=== PATIENT | male | born 1950 | race Caucasian/White ===

== ENCOUNTER 2023-07-25 07:30 | Day surgery (SDC) | payer MEDICARE, SELFPAY ==
[2023-07-25] VITALS (12 sets, daily range): BP systolic 117–147; BP diastolic 80–99; PULSE 67–75; RESP 14–16; TEMP 36.4; O2SAT 92–98; BMI 31.8
[2023-07-25] MEDS: LACTATED RINGERS 1000 ML 1,000 ML 100 ML IV (07:40)
[2023-07-25] MEDS: SODIUM CHLORIDE 0.9 % (FLUSH) 10 ML SYRINGE IVF (08:28)
[2023-07-25] MEDS: CEFAZOLIN 2 GM INJ IVP (09:46)
[2023-07-25] MEDS: BUPIVACAINE 0.25% 30 ML INJECTION (09:51)
--- NOTE | 2023-07-25 10:49 | W.ANESCHARGE ---
Anesthesia Charges Start Date/Time Anesthesia Start Date: 07/25/23 Anesthesia Start Time: 09:19 Stop Date/Time Anesthesia Stop Date: 07/25/23 Anesthesia Stop Time: 11:16 Summary Extremes of Age - Over 70 or under 1: MDA
--- NOTE | 2023-07-25 11:06 | PM.GSPRC ---
Operative Note Date of procedure: 07/25/23 Pre-op diagnosis: Right inguinal hernia Post-op diagnosis: same Type of Procedure: Laparoscopic right inguinal hernia repair with mesh Indications: The patient is a 72-year-old male who previously underwent left inguinal hernia repair laparoscopically in 2019. He developed a right groin bulge approximately 1 year ago. This became increasingly symptomatic for him and he desired repair. Discussed options and agreed to proceed with surgical repair. Procedure Description: After discussing the risks and benefits of the procedure, the patient signed informed consent.? The operative site was marked and the patient was brought to the operating room and placed on the operating table in supine position.? Care was taken to pad the patient's pressure points.?? The patient was then intubated by anesthesia.?? The operative site was then prepped and draped in the usual sterile fashion.? A time-out was then performed. A curvilinear incision was made below the umbilicus. Dissection was carried down to subcutaneous tissue until the anterior rectus fascia was encountered. This was incised off the midline on the right. The rectus muscle fibers were then retracted exposing the posterior fascia. A port with a dissecting balloon was then introduced into the pre-preperitoneal space. This was inflated under direct vision. The balloon was deflated, removed, and a 10 mm working port was placed. The space was insufflated and a 10 mm 30-degree scope was then advanced into the space. There were adhesions toward the midline from the patient's prior laparoscopic repair, however I was able to take these down bluntly in order to place 2 working ports in the midline. I began my dissection laterally as there were more adhesions medially. I was able to identify the epigastric vessels and dissect out laterally, identifying an indirect hernia sac. This hernia sac was reduced along with a large cord lipoma. This was dissected with a combination of blunt dissection and cautery on small blood vessels. I then took my dissection medially. The preperitoneal fat was densely adherent to the abdominal wall here, likely from the patient's prior repair. I was able to, staying close to the abdominal wall dissect medially, encountering the pubic bone. There was no direct hernia defect noted. Once I had created sufficient space for placement of mesh, piece of large Bard 3DMax mesh was obtained and placed into the preperitoneal space. This was positioned with the marker pointed medially. A Tacker was used to attach the mesh medially at Rupesh's ligament and 1 tack laterally with care to avoid the epigastric vessels and stay above the inguinal ligament. Once this was completed the sac was placed on top of the mesh and the preperitoneal space desufflated under direct vision to ensure the mesh laid flat. 10 mL of 0.5% Marcaine were instilled into the preperitoneal space through a port. The ports were removed. The fascia from the infraumbilical port was closed with 0 Vicryl. The skin incisions were closed with absorbable subcuticular suture. Sterile dressings were then applied. The scrotum was examined to ensure that both testicles were down. Instrument sponge and needle counts were correct at the end of the case. The patient tolerated the procedure well. Findings: Indirect inguinal hernia on the right with adhesions in the midline from prior repair. Anesthesia: GETA Surgeon: Ting Mac MD Estimated blood loss (mL): 5 Condition: stable Disposition: PACU
--- NOTE | 2023-07-25 11:21 | W.ANESCHARGE ---
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
[2023-07-25] MEDS: fentaNYL 100 MCG/2 ML inj 50 MCG IVP (11:35)
[2023-07-25] MEDS: HYDROCODONE-ACETAMIN 5-325 MG 1 TAB PO (12:26)
== END 2023-07-25 12:59 | disposition home or self-care (01) ==
PROVIDERS: PCP Physician Assistant Medical; Visit Provider Surgery
PROC: (CPT 49650; principal; 2023-07-25 08:45)
DX: K40.90 Unilateral inguinal hernia, without obstruction or gangrene, not specified as recurrent (principal)
CPT/HCPCS: 49650; 00860; 99100; A9270; C1781; J0665; J0690; J1100; J1170; J1885; J2405; J2704; J3010; J3490; J7120

== ENCOUNTER 2024-07-14 06:25 | Day surgery (SDC) | payer MEDICARE, SELFPAY ==
--- OUTSIDE RECORDS SUMMARY | 2024-07-14 06:27 | XMS_ITS | Clinical Summary ---
Author Organization [employer] [facility] Address [place], [place] [address] Care Team Providers Care Apprentice Plant Attendant Name Role Phone Peggy Najera Primary Care Provider Allergies No known active allergies Medications durable medical equipment (DME)Indications: Closed fracture of one rib of right side, initial encounter Incentive spirometer - use every hour. 1 Each 08/10/19 21 Active aspirin (ECOTRIN) 81 mg enteric coated tabletIndications :Chest pain, unspecified type Take 1 Tablet (81 mg) by mouth once daily with a meal. 90 Tablet 3 10/21/19 22 Active nitroglycerin (NITROSTAT) 0.4 mg sublingual tabletIndications :Chest pain, unspecified type Place 1 Tablet (0.4 mg) under the tongue every 5 minutes if needed for Chest Pain. 25 Tablet 07/31/19 23 Active budesonide-formot Sheri (Symbicort) 160-4.5 mcg/actuation (160-4.5 mcg each actuation) inhalerIndication s:Bronchiolitis Inhale 2 Puffs by mouth two times daily. 10.2 g 3 04/08/20 23 Active montelukast (SINGULAIR) 10 mg tabletIndications :RAD (reactive airway disease), unspecified asthma severity, uncomplicated Take 1 Tablet (10 mg) by mouth at bedtime. 90 Tablet 3 04/08/20 23 Active metoprolol succinate (TOPROL XL) 25 mg Sustained-Release tabletIndications :Hypertension,SOB (shortness of breath),Cardiac ischemia,Elevated coronary artery calcium score Take 1 Tablet (25 mg) by mouth once daily. 90 Tablet 3 04/08/20 23 Active clopidogreL (PLAVIX) 75 mg tabletIndications :S/P drug eluting coronary stent placement,Coronar y artery disease involving pit river coronary artery of pit river heart with unstable angina pectoris (HC) TAKE ONE TABLET BY MOUTH EVERY DAY 90 Tablet 3 02/03/20 24 Active clobetasol (TEMOVATE) 0.05 % cream APPLY TWICE DAILY TO SORES ON THE EAR FOR 2 WEEKS ON AND 2 WEEKS OFF ONGOING NEEDED 02/21/20 24 Active albuterol HFA (PRO-AIR; VENTOLIN; PROVENTIL) 90 mcg/actuation inhalerIndication s:RAD (reactive airway disease), unspecified asthma severity, uncomplicated Inhale 1-2 Puffs by mouth every 4 hours if needed for Shortness Of Breath or Wheezing. 18 g 3 03/10/20 24 Active pantoprazole (PROTONIX) 40 mg delayed-release tabletIndications :Gastroesophageal reflux disease, unspecified whether esophagitis present,SOB (shortness of breath),Hiatal hernia Take 1 Tablet (40 mg) by mouth once daily if needed for Heartburn. 90 Tablet 1 04/29/20 24 Active rosuvastatin (CRESTOR) 20 mg tabletIndications :Cardiac ischemia Take 1 Tablet (20 mg) by mouth at bedtime. 90 Tablet 2 06/14/19 25 Active gabapentin (NEURONTIN) 300 mg capsule Take 300 mg by mouth at bedtime. 06/01/20 24 Active losartan (COZAAR) 100 mg tabletIndications :Hypertension Take 1 Tablet (100 mg) by mouth once daily. 90 Tablet 3 06/17/19 25 Active losartan (COZAAR) 100 mg tabletIndications :Hypertension Take 1 Tablet (100 mg) by mouth once daily. 90 Tablet 3 04/08/20 23 025 Discontin ued(Reord er (E-cancel not sent)) methylPREDNISolon e (Medrol, Edwin,) 4 mg tabletIndications :RAD (reactive airway disease), unspecified asthma severity, uncomplicated Take by mouth as instructed per packaging. 21 Tablet 03/10/20 24 025 Discontin ued(*Sofiya ent states no longer taking) Active Problems Problem Noted Date Diagnosed Date S/P drug eluting coronary stent placement 2021 Overview (12/13/2021): LACHELLE to pLAD (12/13/2021) Coronary artery disease invo lving pit river coronary artery of pit river heart with unstable angina pectoris 12/13/2021 Overview (12/13/2021): Severe coronary artery disease --Abnl NM stress (09/13/2021) --CCTA (10/11/2021) >=70% diameter stenosis in the proximal left anterior descending artery. >=70% diameter stenosis in the proximal left circumflex artery. --CA (12/13/2021) s/p LACHELLE pLAD Hyperlipidemia LDL goal <70 12/13/2021 RAD (reactive airway disease ), unspecified asthma severity, uncomplicated 07/24/2021 Urinary frequency 09/19/2016 GERD (gastroesophageal reflux disease) 5 Heat intolerance 04/26/2015 Lumbar facet arthropathy 08/13/2012 DDD (degenerative disc disease), lumbar 08/14/19 13 Lumbar disc herniation with radiculopathy 2010 Hypertension 09/07/2010 ARTHROPATHY MTP 09/11/2007 Cardiovascular symptoms Resolved Problems Problem Noted Date Diagnosed Date Resolved Date Routine adult health maintenance 09/16/2014 04/26/2015 Overview (09/16/2014): Colonoscopy 09/2014 normal repeat in 10 years Encounters Date Type Department Care Team Description 06/30/2024 7:30 AM ELECTRIC MOTOR ASSEMBLER Office Visit [facility] [address] [place] [address] Peggy Najera PA Preoperative Exam (R carpel tunnel ) 06/30/2024 Travel 06/25/2024 Telephone [facility] [address] [facility] [place] [address] Peggy Najera PA Appointment Request 06/20/2024 Refill [facility] [address] [facility] [place] [address] Peggy Najera PA Refill Request (Losartan) 06/17/2024 1:30 PM ELECTRIC MOTOR ASSEMBLER Ancillary Procedure [facility] [address] [place] [address] 06/17/2024 1:00 PM ELECTRIC MOTOR ASSEMBLER Office Visit [facility] [address] [place] [address] Peggy Najera PA Musculoskeletal Problem (Rt hand pain, no injury, x 2 months, numbness up to elbow and armpit) 06/17/2024 Travel 06/12/2024 Refill [facility] [address] [place] [address] Peggy Najera PA Refill Request (Losartan) 06/10/2024 Refill [facility] [address] [place] [address] Peggy Najera PA Refill Request (Rosuvastatin) 06/08/2024 Nurse Triage [facility] [address] [place] [address] Peggy Najera PA Hand Pain/problem 05/31/2024 Orders Only [facility] Scanner 1 scan: (1-Ord) [facility], LT SUPERIOR HELIX LESION SHAVE REMOVAL, LT SUPERIOR LATERAL MALAR CHEEK MOHS SURGERY, 05/31/2024 04/26/2024 Refill [facility] [address] [place] [address] Peggy Najera PA Refill Request (Pantoprazole) from Last 3 Months Immunizations Name Administration Dates Next Due COVID-19 VACCINE SPIKEVAX (M ODERNA 50MCG/0.5ML) 12YO+ PFS 04/08/2023 COVID-19 vaccine (Pfizer-Bio NTBioLeap 30mcg/0.3mL) 12YO+ BIVALENT PF, MDV 03/09/2022 COVID-19 vaccine (MeBeam-BioNTech 30mcg/0.3mL) P F, MDV 09/03/2020,08/13/2020 Influenza, IIV4 04/20/2016 Influenza, Inactivated AIIV4 (Age 65+ Years) Preserv Free 04/08/2023,03/09/2022 Influenza, Inactivated IIV3 (Age 65+ Years) Preserv Free 02/26/2018,05/15/2017 Pneumococcal conj 13-Valent (Prevnar 13) 018 Td (Age >=7 Years) 07/06/1999 Tdap 11/29/2022,06/08/2011 Family History Medical History Relation Name Comments Heart Disease Father pace maker Diabetes Maternal Grandmother Cancer-breast Mother Relation Name Status Comments Father Maternal Grandmother Mother Social History Tobacco Use Types Packs/Day Years Used Date Smoking Tobacco: Never Smokeless Tobacco: Never Tobacco Cessation:Counseling Given: Yes Comments:was a social rare smoke on weekends, a long time ago Alcohol Use Standard Drinks/Week Comments Yes 0 (1 standard drink = 0.6 oz pur e alcohol) occasionally PHQ-2 Answer Date Recorded PHQ-2 TOTAL SCORE 0 04/08/2023 Social Connections Answer Date Recorded Do you often feel lonely or isolated from those around you? 0 03/10/2024 Financial Resource Strain Answer Date R ecorded Difficulty of Paying Living Expenses 3 03/10/2024 Difficulty of Paying Living Expenses Not on file 03/10/2024 Food Insecurity Answer Date Recorded Do you worry your food will run out before you are able to buy more? 1 03/10/2024 Transportation Needs Answer Date Record ed Does lack of transportation keep you from medica l appointments? 1 03/10/2024 Does lack of transportation keep you from work, meetings or getting things that you need? 1 03/10/2024 Housing Stability Answer Date Recorded What is your housing situation today? 1 03/10/2024 Interpersonal Safety Answer Date Record ed Are you being hit, kicked, p ushed or yelled at (see row info)? No 07/23/2023 Interpersonal Safety Abuse 12 - 18 Not on file 07/23/2023 Interpersonal Safety Ambulatory Vulnerability No t on file 07/23/2023 Utilities Answer Date Recorded Do you have trouble paying f or utilities (for example, heat, electricity, water, phone)? 1 03/10/2024 Sex and Gender Information Value Date Recorded Sex Assigned at Not on file Legal Sex Male 5:24 AM ELECTRIC MOTOR ASSEMBLER Gender Identity Not on file Sexual Orientation Not on file Obstetrics History Last Filed Vital Signs Vital Sign Reading Time Taken Comments Blood Pressure 129/72 06/30/2024 7:57 AM ELECTRIC MOTOR ASSEMBLER Pulse 68 06/30/2024 7:35 AM ELECTRIC MOTOR ASSEMBLER Temperature 36.6 C (97.8 F) 12/15/2021 8:26 PM CDT Respiratory Rate 20 04/12/2022 2:00 PM CDT Oxygen Saturation 98% 06/30/2024 7:35 AM ELECTRIC MOTOR ASSEMBLER Inhaled Oxygen Concentration - - Weight 106.6 kg (235 lb) 06/30/2024 7:35 AM ELECTRIC MOTOR ASSEMBLER Height 177.8 cm (5' 10) 06/17/2024 12:57 PM ELECTRIC MOTOR ASSEMBLER Body Mass Index 33.72 06/17/2024 12:57 PM ELECTRIC MOTOR ASSEMBLER Plan of Treatment Health Maintenance Due Date Last Done Comments Zoster (shingles) series for age 50+ (1 of 2) 2001 RSV vaccine for adults or (1 - Risk 60-74 years 1-dose series) 2011 Pneumococcal series for age 50+ (2 of 2 - PPSV23) 04/23/2018 02/26/2018 COVID-19 vaccine series ( season) 2024 04/08/2023, 03/09/2022, 05/31/2021, Additional history exists Influenza for age 65+ 02/09/2024 04/08/2023 , 03/09/2022, 02/26/2018, Additional history exists Depression screening for age 12+ 04/08/2024 04/08/2023, 04/12/2022, 04/12/2022, Additional history exists Medicare Wellness for age 65+ 04/08/2024 04/08/2023 Colonoscopy through age 75 09/16/2024 09/16/2014, BMI (ht and wt on same day) for age 18+ 06/17/2025 06/17/2024, 04/08/2023, 08/22/2022, Additional history exists Lipids for age 45-75 06/17/2029 06/17/2024, 03/25/2023, 10/03/2021, Additional history exists Tetanus booster 11/29/2032 11/29/2022, 05/12, 07/06/1999 Hepatitis C screening for ag e 18-79 Completed 03/06/2022 Tdap Completed 11/29/2022, 06/08/2011 Procedures Procedure Name Priority Date/Time Associated Diagnosis Comments COMP METABOLIC PANEL Routine 06/30/2024 8:03 AM ELECTRIC MOTOR ASSEMBLER Hypertension HEMOGLOBIN Routine 06/30/2024 8:03 AM ELECTRIC MOTOR ASSEMBLER Hypertension BASIC METABOLIC PANEL Routine 06/17/2024 1:41 PM ELECTRIC MOTOR ASSEMBLER Hypertension LIPID PANEL W REFLEX MEASURED LDL Routine 06/17/2024 1:41 PM ELECTRIC MOTOR ASSEMBLER Coronary artery disease involving pit river coronary artery of pit river heart with unstable angina pectoris (HC) PSA TOTAL Routine 06/17/2024 1:41 PM ELECTRIC MOTOR ASSEMBLER Screening PSA (prostate specific antigen) XR SPINE CERVICAL 3 VIEWS Routine 06/17/2024 1:32 PM ELECTRIC MOTOR ASSEMBLER Radicular pain in right arm SCAN-OPERATIVE/PROCE DURE REPORT 05/31/2024 12:00 AM ELECTRIC MOTOR ASSEMBLER ANTI HCV Add On 03/06/2022 11:53 AM CDT Need for hepatitis C screening test from Last 3 Months or Most Recently Relevant to Health Maintenance Results * HEMOGLOBIN (06/30/2024 8:03 AM ELECTRIC MOTOR ASSEMBLER) HEMOGLOBIN 14.0 13.2 - 17.1 g/dL [facility] Blood BLOOD SPECIMEN / Unknown 06/30/2024 8:03 AM ELECTRIC MOTOR ASSEMBLER 06/30/2024 8:03 AM ELECTRIC MOTOR ASSEMBLER us Peggy FERRELL HEMATOLOGY Final R esult [facility] [address] [place] [address], [facility] [address] [place] [address] * COMP METABOLIC PANEL (06/30/2024 8:03 AM ELECTRIC MOTOR ASSEMBLER) GLUCOSE 73 65 - 99 mg/dL [facility] Comment: Fasting reference interval UREA NITROGEN (BUN) 25 7 - 25 mg/dL [facility] CREATININE 1.06 0.70 - 1.28 mg/dL [facility] EGFR 75 > OR = 60 mL/min/1. 73m2 [facility] BUN/CREATININE RATIO SEE NOTE: 6 - 22 (calc) [facility] Comment: Not Reported: BUN and Creatinine are within reference range. SODIUM 138 135 - 146 mmol/L [facility] POTASSIUM 4.6 3.5 - 5.3 mmol/L [facility] CHLORIDE 103 98 - 110 mmol/L [facility] CARBON DIOXIDE 28 20 - 32 mmol/L [facility] CALCIUM 9.3 8.6 - 10.3 mg/dL [facility] PROTEIN, TOTAL 6.7 6.1 - 8.1 g/dL [facility] ALBUMIN 4.2 3.6 - 5.1 g/dL [facility] GLOBULIN 2.5 1.9 - 3.7 g/dL (calc) [facility] ALBUMIN/GLOBULIN RATIO 1.7 1.0 - 2.5 (calc) [facility] BILIRUBIN, TOTAL 0.5 0.2 - 1.2 mg/dL [facility] ALKALINE PHOSPHATASE 107 35 - 144 U/L [facility] AST 17 10 - 35 U/L [facility] ALT 13 9 - 46 U/L [facility] Blood BLOOD SPECIMEN / Unknown 06/30/2024 8:03 AM ELECTRIC MOTOR ASSEMBLER 06/30/2024 8:03 AM ELECTRIC MOTOR ASSEMBLER us Peggy FERRELL CHEMISTRY Final R esult [facility] [address] [place] [address], [place] [phone] [facility] [address] [place] [address] * (ABNORMAL) LIPID PANEL W REFLEX MEASURED LDL (06/17/2024 1:41 PM ELECTRIC MOTOR ASSEMBLER) CHOLESTEROL, TOTAL 115 <200 mg/dL [facility] HDL CHOLESTEROL 38(L) > OR = 40 mg/dL [facility] TRIGLYCERIDES 121 <150 mg/dL [facility] LDL-CHOLESTEROL 57 mg/dL (calc) [facility] Comment: Reference range: <100 Desirable range <100 mg/dL for primary prevention; <70 mg/dL for patients with CHD or diabetic patients with > or = 2 CHD risk factors. LDL-C is now calculated using the Muriel calculation, which is a validated novel method providing better accuracy than the Friedewald equation in the estimation of LDL-C. Jacob SS et al. ANN MARIE. 2013;310(19): 3200-1673 (http://education.Railpod/faq/VPL275) CHOL/HDLC RATIO 3.0 <5.0 (calc) [facility] NON HDL CHOLESTEROL 77 <130 mg/dL (calc) [facility] Comment: For patients with diabetes plus 1 major ASCVD risk factor, treating to a non-HDL-C goal of <100 mg/dL (LDL-C of <70 mg/dL) is considered a therapeutic option. Blood BLOOD SPECIMEN / Unknown 06/17/2024 1:41 PM ELECTRIC MOTOR ASSEMBLER 06/17/2024 1:41 PM ELECTRIC MOTOR ASSEMBLER Peggy FERRELL CHEMISTRY Final R esult [employer] [facility] [address] [place] [address], [facility] [address] [place] [address] * PSA TOTAL (06/17/2024 1:41 PM ELECTRIC MOTOR ASSEMBLER) PSA, TOTAL 1.40 < OR = 4.00 ng/mL [facility] Comment: The total PSA value from this assay system is standardized against the WHO standard. The test result will be approximately 20% lower when compared to the equimolar-standardized total PSA (Eliezer Daysi). Comparison of serial PSA results should be interpreted with this fact in mind. This test was performed using the Siemens chemiluminescent method. Values obtained from different assay methods cannot be used interchangeably. PSA levels, regardless of value, should not be interpreted as absolute evidence of the presence or absence of disease. Blood BLOOD SPECIMEN / Unknown 06/17/2024 1:41 PM ELECTRIC MOTOR ASSEMBLER 06/17/2024 1:41 PM ELECTRIC MOTOR ASSEMBLER us Peggy FERRELL CHEMISTRY Final R esult [employer] [facility] [address] [place] [address], [facility] [address] [place] [phone] * (ABNORMAL) BASIC METABOLIC PANEL (06/17/2024 1:41 PM ELECTRIC MOTOR ASSEMBLER) Pathologist [facility] GLUCOSE 94 65 - 99 mg/dL [facility] Comment: Fasting reference interval UREA NITROGEN (BUN) 26(H) 7 - 25 mg/dL [facility] CREATININE 1.15 0.70 - 1.28 mg/dL [facility] EGFR 68 > OR = 60 mL/min/1.7 3m2 [facility] BUN/CREATININE RATIO 23(H) 6 - 22 (calc) [facility] SODIUM 138 135 - 146 mmol/L [facility] POTASSIUM 4.4 3.5 - 5.3 mmol/L [facility] CHLORIDE 104 98 - 110 mmol/L [facility] CARBON DIOXIDE 27 20 - 32 mmol/L [facility] ELECTROLYTE BALANCE 7 7 - 17 mmol/L (calc) [facility] CALCIUM 9.1 8.6 - 10.3 mg/dL [facility] Blood BLOOD SPECIMEN / Unknown 06/17/2024 1:41 PM ELECTRIC MOTOR ASSEMBLER 06/17/2024 1:41 PM ELECTRIC MOTOR ASSEMBLER us Peggy FERRELL CHEMISTRY Final R esult [employer] [address] [place] [address], [facility] [address] [place] [address] * XR SPINE CERVICAL 3 VIEWS (06/17/2024 1:32 PM ELECTRIC MOTOR ASSEMBLER) Anatomical Region Laterality Modality CERVICAL SPINE Computed Radiogr aphy 06/17/2024 3:55 PM ELECTRIC MOTOR ASSEMBLER Impressions 06/17/2024 3:55 PM ELECTRIC MOTOR ASSEMBLER Multilevel degenerative disc disease and facet degeneration. No fracture. Dictated by Michel Padron MD @ 06/17/2024 3:55:45 PM (Electronically Signed) Narrative 06/17/2024 3:55 PM ELECTRIC MOTOR ASSEMBLER For Patients: As a result of the Cures Act, medical imaging exams and procedure reports are released immediately into your electronic medical record. You may view this report before your referring provider. If you have questions, please contact your health care provider. INDICATION: Radicular pain right arm TECHNIQUE: Cervical spine 3 view. COMPARISON: None FINDINGS: Disc space narrowing and spurring C4-5 and C5-6. No fracture. Facet degeneration mid and lower cervical spine without spondylolisthesis. Vascular calcifications. Procedure Note Michel Padron MD - 06/17/2024 For Patients: As a result of the s Act, medical imagingexams and procedure reports are released immediately into your electronicmedical record. You may view this report before your referring provider.If you have questions, please contact your health care provider. INDICATION: Radicular pain right arm TECHNIQUE: Cervical spine 3 view. COMPARISON: None FINDINGS: Disc space narrowing and spurring C4-5 and C5-6. No fracture. Facetdegeneration mid and lower cervical spine without spondylolisthesis.Vascular calcifications. IMPRESSION: Multilevel degenerative disc disease and facet degeneration. Nofracture. Dictated by Michel Padron MD @ 06/17/2024 3:55:45 PM (Electronically Signed) us Peggy FERRELL GENERAL IMAGING Final R esult * SCAN-OPERATIVE/PROCEDURE REPORT (05/31/2024 12:00 AM ELECTRIC MOTOR ASSEMBLER) us Scanner OTHER Final Result * ANTI HCV (03/06/2022 11:53 AM CDT) HEPATITIS C ANTIBODY Non-React juan antonio Non-React juan antonio 03/09/2022 3:56 PM CDT [facility] Comment:Antibodies to HCV no t detected; does not exclude the possibility of exposure to HCV. Blood BLOOD SPECIMEN / Unknown Venipuncture / Unknown 03/06/2022 11:53 AM CDT 03/06/2022 11:53 AM CDT us Peggy FERRELL SEND OUTS Final R esult [facility] 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
--- OUTSIDE RECORDS SUMMARY | 2024-07-14 06:27 | XMS_ITS | Clinical Summary ---
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 Medications Administered No information available. Allergies, Adverse Reactions, Alerts No information available. Results Date Name Value Unit Range Flag Description Internal Other: Authorizatio n - OBS AUTHBENEFIT Yes Authoriza tion: Assignment of Benefits and Payment Agreement [email or web address] Yes Authorizat ion: Authorization for [facility] to leave messages, voicemail, send text messages, send emails AUTHRELHCARE Yes Authoriz ation: Release/Retrieval of Information to/from Healthcare Facilities, Pharmacy Benefit Payers and Providers ROIAUTHOTHER Yes Authoriz ation: Release of Information - Authorize Others/Insurance - Payment and Healthcare Operations [email or web address] Yes Authoriza tion: Release of Information - Authorize [facility] - Payment and Healthcare Operations AUTHPRIVPRAC Yes Authoriz ation: Notice of privacy practices HIECONSENT Yes Consent To Release information to the Health Information Exchange (HIE) Plan of Care No information available. Procedures Code Procedure Name Date Entry Date CPT-89506 Nerve Conduction 7-8 studies CPT-03421 EMG with NCS (5+ muscles) - 1 limb 06/18 CPT-97007 Nerve Conduction 9-10 studies CPT-88955 EMG with NCS (5+ muscles) - 2 limbs 07/26 Vital Signs No information available. Immunizations No information available. Advance Directives No information available.
--- OUTSIDE RECORDS SUMMARY | 2024-07-14 06:27 | XMS_ITS ---
Author Organization [facility] Address [address] [facility] , [address] [place] [address] Phone Care Team Providers Care Substation Designer Name Role Phone Darrius Virgen MD Conditions or Problems Problem Name Problem Code Onset Date Status Entry Date Provider Comment Standard Description Annotate Ulnar neuropathy , right [id number] (SNOMED CT) Active Darrius Virgen MD Ulnar neuropathy Median neuropathy , right [id number] (SNOMED CT) Active Darrius Virgen MD Median neuropathy Medications No information available. Medications Administered No information available. Allergies, Adverse Reactions, Alerts No information available. Results No information available. Plan of Care No information available. Procedures Code Procedure Name Date Entry Date CPT-23988 Nerve Conduction 7-8 studies CPT-37177 EMG with NCS (5+ muscles) - 1 limb 06/18 Vital Signs No information available. Immunizations No information available. Advance Directives No information available.
[2024-07-14 06:43] VITALS: BMI 31.8
[2024-07-14 06:53] VITALS: BP 105/72; PULSE 83; RESP 16; TEMP 37; O2SAT 96
[2024-07-14] MEDS: SODIUM CHLORIDE 0.9 % (FLUSH) 10 ML SYRINGE IVF (07:09)
[2024-07-14] MEDS: 0.9 % SODIUM CHLORIDE 500 ML 500 ML 100 ML IV (07:09)
[2024-07-14] MEDS: LIDOCAINE 1%-EPI 1:100,000 12 ML INFILTRATI (07:19)
[2024-07-14] MEDS: BUPIVACAINE 0.5 %/EPI 1:200K 12 ML INJECTION (07:19)
[2024-07-14] MEDS: CEFAZOLIN 2 GM INJ IVP (07:25)
--- NOTE | 2024-07-14 07:39 | SUR.OPER ---
PATIENT QUESTIONS ANSWERED SATISFACTORILY PREOPERATIVELY. PATIENT BROUGHT TO OR #2 PER CART. Patient positioned supine on OR #2 bed. The perioperative team supported arms bilaterally on arm boards. Final approval of positioning by surgeon.
[2024-07-14] MEDS: 0.9 % SODIUM CHLORIDE 500 ML 500 ML 30 ML IV (08:16)
[2024-07-14 08:30] VITALS: BP 104/74; PULSE 77; RESP 16; TEMP 36.1; O2SAT 92
--- NOTE | 2024-07-14 08:36 | P.ANES_ITS ---
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
--- NOTE | 2024-07-14 08:36 | W.ANESCHARGE ---
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
[2024-07-14 08:45] VITALS: BP 124/47; PULSE 77; RESP 16; O2SAT 93
--- NOTE | 2024-07-14 08:58 | P.ANES_ITS ---
Anesthesia Charges Start Date/Time Anesthesia Start Date: 07/14/24 Anesthesia Start Time: 07:10 Stop Date/Time Anesthesia Stop Date: 07/14/24 Anesthesia Stop Time: 08:34 Summary Extremes of Age - Over 70 or under 1: MDA Coding CPT Codes CPT Codes: ANESTH ELBOW AREA SURGERY - 46008 ([id number]) QX - CHILDREN'S CHOIR DIRECTOR SVC W/ MD MED DIRECTION, QK - COMMERCIAL PRINT SALESMAN 2-4 CNCRNT ANES PROC, P3 - PATIENT W/SEVERE SYS DISEASE Additional Codes: Summary - Extremes of Age - Over 70 or under 1: MDA ([id number])
--- NOTE | 2024-07-14 08:58 | W.ANESCHARGE ---
Anesthesia Charges Start Date/Time Anesthesia Start Date: 07/14/24 Anesthesia Start Time: 07:10 Stop Date/Time Anesthesia Stop Date: 07/14/24 Anesthesia Stop Time: 08:34 Summary Extremes of Age - Over 70 or under 1: MDA Coding CPT Codes CPT Codes: ANESTH ELBOW AREA SURGERY - 27980 ([id number]) QX - BLACK POWDER GLAZING OPERATOR SVC W/ MD MED DIRECTION, QK - BEHAVIORAL HEALTH TECHNICIAN 2-4 CNCRNT ANES PROC, P3 - PATIENT W/SEVERE SYS DISEASE Additional Codes: Summary - Extremes of Age - Over 70 or under 1: MDA ([id number])
[2024-07-14 09:00] VITALS: BP 127/74; PULSE 74; RESP 16; O2SAT 93
--- NOTE | 2024-07-14 09:31 | P.ORPRC_ITS ---
Procedure Note Date of procedure: 07/14/24 Procedure: Preop diagnosis: Right upper extremity cubital tunnel syndrome, carpal tunnel syndrome Postop diagnosis: Right upper extremity cubital tunnel syndrome, carpal tunnel syndrome Procedure: Right upper extremity cubital tunnel release, carpal tunnel release Anesthesia: Local plus monitored anesthesia care Surgeon: Grabiel Cunha MD [employer] assistant football coach: Annemarie Staley PA-C EBL: 0 mL Complications: None Specimens: None Drains: None Preoperative antibiotics: Ancef 2g Indications: The patient has a history of right upper extremity cubital tunnel syndrome, carpal tunnel syndrome symptoms. EMG/nerve conduction study confirms the diagnoses. Despite appropriate nonoperative management they continue to have symptoms. Operative intervention was recommended. The risks, benefits alternatives and expected outcomes were discussed in detail. These included but were not limited to: Infection, bleeding, injury to blood vessel or nerve, venous thromboembolism. All questions were answered to their satisfaction. The patient was placed supine on the operating room table. IV sedation was administered, local anesthetic was injected at each incision site. The upper extremity was prepped and draped in usual sterile fashion. The limb was exsanguinated with the Jacob bandage, the pneumatic tourniquet was inflated to 250 mm of mercury. A carpal tunnel release was approached 1st. A longitudinal incision was made centered over the radial border of the ring finger at the base of the palm. Subcutaneous dissection was sharply taken through the palmar fascia and the palmaris brevis to the transverse carpal ligament. The ligament was divided in line with the incision. Proximal and distal dissection was carried with tenotomy and Metzenbaum scissors for a wide decompression of the carpal tunnel. Attention was then turned to the cubital tunnel. A longitudinal incision was made centered over the ulnar nerve at the cubital tunnel. Subcutaneous dissection was taken with the scalpel and Metzenbaum and tenotomy scissors to the ulnar nerve. Dissection was carried distally to the fascia over the flexor carpi ulnaris which was divided longitudinally. We visualized the motor branch to the FCU. Dissection was carried proximally into the triceps muscle belly. This results in a wide decompression of the ulnar nerve. Flexion and extension of the elbow shows the nerve is stable. The wounds were irrigated with normal saline. The hand wound was closed with interrupted 3-0 nylon sutures. The elbow wound was closed with a 2-0 Vicryl and a 3-0 Monocryl in a subcuticular fashion. Glue was used to seal the skin. A soft dressing was applied. The tourniquet was released. The patient tolerated the procedure well, there were no apparent complications. They were sent to same day surgery in satisfactory condition. Plan: Use of the upper extremity as tolerates. Discontinue the intraoperative dressing on postoperative day 3 and may get the wound wet as tolerates. Follow up in the office in 2 weeks for a wound check and suture removal.
== END 2024-07-14 09:15 | disposition home or self-care (01) ==
LOC: OR 06:25
PROVIDERS: PCP Physician Assistant Medical; Visit Provider Orthopaedic Surgery
PROC: (CPT 64721; principal; 2024-07-14 07:15)
DX: G56.01 Carpal tunnel syndrome, right upper limb (principal); G56.21 Lesion of ulnar nerve, right upper limb
CPT/HCPCS: 64721; 64718; 01710; 99100; J0690; J1100; J2250; J2371; J2405; J2704; J3490; J7030